=== PATIENT | female | born 2000 | race Two or more races ===

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

== ENCOUNTER 2021-05-24 09:06 | Emergency (ER) | payer OTHER ==
[~2021-05-24] VITALS: Ht 154.9 cm; Wt 90.9 kg
[~2021-05-24 09:06] MED LIST changes: +CEPH500T PO
[2021-05-24] MEDS ORDERED: ONDANSETRON PF 4 MG/2 ML VIAL. ONE (09:22)
[2021-05-24] MEDS ORDERED: ONDANSETRON PF 4 MG/2 ML VIAL. IVP ONE (09:30)
[2021-05-24] MEDS ORDERED: MORPHINE SULFATE 2 MG/ML INJ. IVP ONE (10:00)
[2021-05-24 10:22] LABS: BASO # 0.1 x10^3/uL (0.0-0.2); BASO % 0 % (0-3); EOS # 0.2 x10^3/uL (0.0-0.7); EOS % 1 % (0-3); HEMATOCRIT 37.7 % (36.0-47.0); HEMOGLOBIN 12.5 g/dL (12.0-15.5); LYMPH # 1.9 x10^3/uL (1.0-4.8); LYMPH % 11 % (24-48); MEAN CORPUSCULAR HEMOGLOBIN 28 pg (25-35); MEAN CORPUSCULAR HGB CONC 33 g/dL (31-37); MEAN CORPUSCULAR VOLUME 86 fL (79-100); MONO # 0.6 x10^3/uL (0.0-1.1); MONO % 3 % (0-9); NEUT # 15.2 x10^3/uL (1.8-7.7); NEUT % 85 % (31-73); PLATELET COUNT 340 x10^3/uL (140-400); RED CELL DISTRIBUTION WIDTH 15.9 % (11.5-14.5); WHITE BLOOD COUNT 17.9 x10^3/uL (4.0-11.0)
[2021-05-24 10:24] LABS: CALCIUM 8.6 mg/dL (8.5-10.1); CREATININE 0.8 mg/dL (0.6-1.0); GFR 92.4; POTASSIUM 3.4 mmol/L (3.5-5.1)
[2021-05-24 10:30] LABS: ALBUMIN 3.7 g/dL (3.4-5.0); TOTAL BILIRUBIN 0.2 mg/dL (0.2-1.0); TOTAL PROTEIN 7.3 g/dL (6.4-8.2)
[2021-05-24] MEDS ORDERED: PROCHLORPERAZINE 10 MG/2 ML VIAL. IV ONE (10:45)
--- NOTE | 2021-05-24 10:46 | PHYS DOC ---
Past Medical History Past Medical History: No Pertinent History, Alcoholism Additional Past Medical Histor: cyclic vomiting Past Surgical History: No Surgical History Smoking Status: Current Every Day Smoker Additional Information: smokes marijuana daily Alcohol Use: Occasionally Drug Use: None General Adult EDM: Chief Complaint: NAUSEA/VOMITING/DIARRHEA HPI: HPI: Patient is a 20 year old female who presents with epigastric pain. Patient states "it is my gallbladder." States she has had similar pain in the past and was told that it was gallstones. Pain started early this morning. Associated with nausea multiple episodes of vomiting. She had a normal bowel movement this morning. Denies fever/chills. Denies dysuria, urgency, frequency. States that she had 2 mikes hard lemonade's last night, and occasionally feels hung over after a similar amount of drinking, but this is different than her typical hangover. Pain is been constant since onset. . Review of Systems: Review of Systems: Constitutional: Denies fever or chills. [] Eyes: Denies change in visual acuity. [] HENT: Denies nasal congestion or sore throat. [] Respiratory: Denies cough or shortness of breath. [] Cardiovascular: Denies chest pain or edema. [] GI: Reports abdominal pain, nausea, vomiting. Denies bloody stools or diarrhea. [] : Denies dysuria. [] Musculoskeletal: Denies back pain or joint pain. [] Integument: Denies rash. [] Neurologic: Denies headache, focal weakness or sensory changes. [] Endocrine: Denies polyuria or polydipsia. [] Lymphatic: Denies swollen glands. [] Psychiatric: Denies depression or anxiety. [] Heart Score: C/O Chest Pain: No Risk Factors: Risk Factors: DM, Current or recent (<one month) smoker, HTN, HLP, family history of CAD, obesity. Risk Scores: Score 0 - 3: 2.5% MACE over next 6 weeks - Discharge Home Score 4 - 6: 20.3% MACE over next 6 weeks - Admit for Clinical Observation Score 7 - 10: 72.7% MACE over next 6 weeks - Early Invasive Strategies Current Medications: Current Medications Medications (Trade) Dose Ordered Sig/Jewell Start Time Stop Time Status Last Admin Dose Admin Morphine Sulfate (Morphine Sulfate) 2 mg 1X ONCE 05/24/21 10:00 05/24/21 10:03 DC 05/24/21 10:25 2 MG Ondansetron HCl (Zofran) 4 mg 1X ONCE 05/24/21 09:30 05/24/21 09:31 DC 05/24/21 09:25 4 MG Prochlorperazine Edisylate (Compazine) 10 mg 1X ONCE 05/24/21 10:45 05/24/21 10:46 Allergies: Allergies: Allergies Coded Allergies Type Severity Reaction Last Updated Verified No Known Drug Allergies 05/24/21 No Physical Exam: PE: Constitutional: Appears uncomfortable. Vomiting in room. [] HENT: Normocephalic, atraumatic, bilateral external ears normal, oropharynx moist, no oral exudates, nose normal. [] Eyes: PERRLA, EOMI, conjunctiva normal, no discharge. [] Neck: Normal range of motion, no tenderness, supple, no stridor. [] Cardiovascular:Heart rate regular rhythm, no murmur [] Lungs & Thorax: Bilateral breath sounds clear to auscultation [] Abdomen: Soft. Significant epigastric tenderness to palpation, mild right upper quadrant tenderness to palpation. No guarding or rebound. [] Skin: Warm, dry, no erythema, no rash. [] Back: No tenderness, no CVA tenderness. [] Extremities: No tenderness, no cyanosis, no clubbing, ROM intact, no edema. [] Neurologic: Alert and oriented X 3, normal motor function, normal sensory function, no focal deficits noted. [] Psychologic: Affect normal, judgement normal, mood normal. [] Current Patient Data: Labs: Laboratory Tests Test 05/24/21 09:30 White Blood Count 17.9 x10^3/uL (4.0-11.0) H Red Blood Count 4.40 x10^6/uL (3.50-5.40) Hemoglobin 12.5 g/dL (12.0-15.5) Hematocrit 37.7 % (36.0-47.0) Mean Corpuscular Volume 86 fL (79-100) Mean Corpuscular Hemoglobin 28 pg (25-35) Mean Corpuscular Hemoglobin Concent 33 g/dL (31-37) Red Cell Distribution Width 15.9 % (11.5-14.5) H Platelet Count 340 x10^3/uL (140-400) Neutrophils (%) (Auto) 85 % (31-73) H Lymphocytes (%) (Auto) 11 % (24-48) L Monocytes (%) (Auto) 3 % (0-9) Eosinophils (%) (Auto) 1 % (0-3) Basophils (%) (Auto) 0 % (0-3) Neutrophils # (Auto) 15.2 x10^3/uL (1.8-7.7) H Lymphocytes # (Auto) 1.9 x10^3/uL (1.0-4.8) Monocytes # (Auto) 0.6 x10^3/uL (0.0-1.1) Eosinophils # (Auto) 0.2 x10^3/uL (0.0-0.7) Basophils # (Auto) 0.1 x10^3/uL (0.0-0.2) Platelet Estimate Pending Sodium Level 143 mmol/L (136-145) Potassium Level 3.4 mmol/L (3.5-5.1) L Chloride Level 108 mmol/L (98-107) H Carbon Dioxide Level 22 mmol/L (21-32) Anion Gap 13 (6-14) Blood Urea Nitrogen 8 mg/dL (7-20) Creatinine 0.8 mg/dL (0.6-1.0) Estimated GFR (Cockcroft-Gault) 92.4 BUN/Creatinine Ratio 10 (6-20) Glucose Level 127 mg/dL (70-99) H Calcium Level 8.6 mg/dL (8.5-10.1) Total Bilirubin 0.2 mg/dL (0.2-1.0) Aspartate Amino Transferase (AST) 18 U/L (15-37) Alanine Aminotransferase (ALT) 27 U/L (14-59) Alkaline Phosphatase 81 U/L (46-116) Total Protein 7.3 g/dL (6.4-8.2) Albumin 3.7 g/dL (3.4-5.0) Albumin/Globulin Ratio 1.0 (1.0-1.7) Lipase 61 U/L (73-393) L Laboratory Tests 05/24/21 09:30 Laboratory Tests 05/24/21 09:30 Vital Signs: Vital Signs Date Time Temp Pulse Resp B/P (MAP) Pulse Ox O2 Delivery O2 Flow Rate FiO2 05/24/21 10:27 80 20 154/82 (106) 100 Room Air 05/24/21 09:09 98.3 98.3 EKG: EKG: [] Radiology/Procedures: Radiology/Procedures: [] Impression: [facility] [address] [place] [address] IMAGING REPORT Signed PATIENT: ELKIN AIKEN ACCOUNT: [id number] : 2000 LOCATION: ER AGE: 20 SEX: F EXAM STATUS: REG ER ORD. PHYSICIAN: GUANAKITO HERRMANN MD REASON: EPIGASTRIC, RUQ PAIN PROCEDURE: ABDOMEN COMPLETE INDICATION : Reason: EPIGASTRIC, RUQ PAIN / Spl. Instructions: / History: COMPARISON: January 2020 TECHNIQUE: Multiple ultrasound images obtained through the abdomen in grayscale and color. FINDINGS: Pancreas: Largely obscured by overlying structures. Liver: Echotexture within normal limits in visualized portions of liver. Gallbladder: Gallstone visualized. IVC: Partially distended at level of liver. Common Bile Duct: Not dilated. Right Kidney: No hydronephrosis. IMPRESSION: * 2 cm gallstone is seen without common bile duct dilation Electronically signed by: Francisco J Bah MD (05/24/2021 11:06 AM) [id number] DICTATED and SIGNED BY: FRANCISCO J BAH MD DATE: 05/24/21 [id number] 0 Course & Med Decision Making: Course & Med Decision Making Pertinent Labs and Imaging studies reviewed. (See chart for details) Patient 20-year-old female with reported history of gallstones who presents with epigastric pain starting abruptly this morning. Pain is been constant and unrelenting. Afebrile and hemodynamically stable on arrival. Appears acutely uncomfortable on examination. Has epigastric and right upper quadrant pain on examination. We will obtain laboratory work-up with CBC, CMP, lipase, and RUQ ultrasound for initial evaluation. DDx includes gastritis, pancreatitis, cholelithiasis, early cholecystitis, choledocholithiasis. 1046 White count 17.9. LFTs normal. Ultrasound shows a 2 cm gallstone without secondary findings of cholecystitis. Symptoms are now improved. Pain is now gone. Likely biliary colic. Discussed with Dr. Verde of surgery, who will see the patient outpatient in his office. Return precautions discussed. [id number] Adriana Disclaimer: Adriana Disclaimer: This electronic medical record was generated, in whole or in part, using a voice recognition dictation system. Departure Departure Impression: Primary Impression: Biliary colic Disposition: HOME / SELF CARE / HOMELESS Condition: STABLE Referrals: NO PCP (PCP) KAYLENE VERDE MD Call his office today to schedule a follow-up appointment to discuss having your gallbladder removed. Additional Instructions: You have a large gallstone, this is likely the cause of your pain. These can sometimes cause infections in your gallbladder. If you develop fever/chills, recurrent constant pain, or other new/concerning symptoms please return to the emergency department for reevaluation. Otherwise please call Dr. Verde's office to schedule an outpatient appointment. GUANAKITO HERRMANN MD May 24, 2021 10:46
[2021-05-24 11:05] LABS: % BANDS 1 % (0-9); % LYMPHS 11 % (24-48); % MONOS 4 % (0-10); % SEGS 84 % (35-66)
[2021-05-24 11:06] LABS: PLT ESTIMATE ADEQUATE (ADEQUATE)
--- NOTE | 2021-05-24 11:08 | RAD ---
INDICATION : Reason: EPIGASTRIC, RUQ PAIN / Spl. Instructions: / History: COMPARISON: January 2020 TECHNIQUE: Multiple ultrasound images obtained through the abdomen in grayscale and color. FINDINGS: Pancreas: Largely obscured by overlying structures. Liver: Echotexture within normal limits in visualized portions of liver. Gallbladder: Gallstone visualized. IVC: Partially distended at level of liver. Common Bile Duct: Not dilated. Right Kidney: No hydronephrosis. IMPRESSION: * 2 cm gallstone is seen without common bile duct dilation Electronically signed by: Luis Carlos Billy MD (05/24/2021 11:06 AM) [id number]
[2021-05-24 12:20] VITALS: BP 143/83
== END 2021-05-24 12:26 | disposition home or self-care (01) ==
LOC: ER 09:06
DX: K80.50 Calculus of bile duct without cholangitis or cholecystitis without obstruction (principal); F17.200 Nicotine dependence, unspecified, uncomplicated
CPT/HCPCS: 36415; 76700; 80053; 83690; 85007; 85025; 96374; 96375; 99285; J0780; J2270; J2405

== ENCOUNTER → 2021-06-24 | Outpatient (CLI) | payer OTHER | LOC: LAB 08:55 | PROVIDERS: ATTEND Surgery | DX: Z01.812 Encounter for preprocedural laboratory examination (principal); U07.1 COVID-19; K80.10 Calculus of gallbladder with chronic cholecystitis without obstruction | CPT/HCPCS: U0003; U0005 ==

== ENCOUNTER 2022-02-11 11:05 | Day surgery (SDC) | payer OTHER ==
[~2022-02-11] VITALS: Ht 154.9 cm; Wt 104.0 kg
[~2022-02-11 11:05] MED LIST changes: +HYDROmorphone 2 MG/ML INJ. IVP PRN; +IV RINGERS,LACTATED 1000ML 1,000 ML IV SCH; +LIDOCAINE 2% PF 5 ML VIAL. ONE; +MORPHINE SULFATE 2 MG/ML INJ. IVP PRN; +ONDANSETRON PF 4 MG/2 ML VIAL. ONE; +PROCHLORPERAZINE 10 MG/2 ML VIAL. IVP PRN; +PROPOFOL 10 MG/ML (20ML) VIAL. IV ONE; +ROCURONIUM 50 MG/5 ML VIAL. ONE; +fentaNYL PF VIAL 100 MCG/2 ML VIAL IVP PRN
[2022-02-11 11:40] VITALS: BP 127/74
[2022-02-11] MEDS ORDERED: MIDAZOLAM HCL/PF 2 MG/2 ML VIAL. ONE (11:41)
[2022-02-11] MEDS ORDERED: fentaNYL PF VIAL 100 MCG/2 ML VIAL ONE ×2 (11:42→13:21)
[2022-02-11] MEDS ORDERED: GLYCOPYRROLATE 1 MG/5 ML VIAL. ONE (11:42)
[2022-02-11] MEDS ORDERED: KETOROLAC 30 MG/ML VIAL. ONE (11:42)
[2022-02-11] MEDS ORDERED: SCOPOLAMINE 1.5MG PATCH. TD ONE (11:45)
[2022-02-11] MEDS ORDERED: ACETAMINOPHEN 500 MG TABLET PO ONE (12:00)
[2022-02-11] MEDS ORDERED: SURGICEL HEMOSTAT 4X8 EACH. ONE (12:03)
[2022-02-11] MEDS ORDERED: BUPIVACAINE-EPI 0.25%-1:200000 MPF 30 ML VIAL. ONE (12:03)
[2022-02-11] MEDS ORDERED: IOHEXOL 300 MG/ML 50 ML VIAL. ONE (12:03)
[2022-02-11] MEDS ORDERED: SUGAMMADEX SODIUM 200 MG/2 ML VIAL. IVP ONE (12:15)
[2022-02-11] MEDS ORDERED: BUPIVACAINE MPF 0.25% 30 ML VIAL. INJ ONE (12:40)
--- NOTE | 2022-02-11 13:07 | PDOC4 ---
Operative Note Operative Note Date: February 11, 2022 at 1:05 PM Preoperative diagnosis: Chronic cholecystitis cholelithiasis Postoperative diagnosis: Same Procedure: Laparoscopic cholecystectomy with fluorescein cholangiography Surgeon: Ammon Specimen: Gallbladder Dictation: Patient is a 21-year-old female with right upper quadrant abdominal pain and ultrasound showing gallstones. Procedure of laparoscopic cholecystectomy was explained to the patient detail was benefits were also discussed including bleeding infection injury to intra-abdominal contents possible necessitating further open operations alternatives to this procedure also discussed with the patient who seemed to understand and gave a verbal written consent to have the procedure performed. Patient was taken to the operating room placed in the supine position general anesthesia was initiated o nce patient was sleeping intubated her abdomen was prepped and draped usual sterile fashion using ChloraPrep. Area just below the umbilicus was injected with quarter percent Marcaine with epinephrine incision was made 11 blade scalpel and a varies needle was placed within the abdomen creating pneumoperitoneum once this was complete a 11 mm port was placed and a 5 mm camera was placed within the abdomen no other abnormalities were noted. 5 mm ports placed in the epigastrium a 5 mm port was placed in the right midabdomen and a 5 mm port was placed in the right lateral abdomen all under direct visualization. The dome of the gallbladder is grasped retracted cephalad the infundibulum the gallbladder is grasped tract laterally exposing the triangle adherent tissues the triangle were taken down with blunt dissection exposing the cystic duct and cystic artery. Fluorescein cholangiography was performed which showed good dye within the cystic duct transversing to the common bile duct with no evidence of obstruction. The cystic duct was then doubly clipped and transected the cystic artery was clipped and transected the gallbladder was taken off the liver with hook electrocautery placed in Endo Catch bag removed from the umbilicus right upper quadrant is irrigated and suctioned dry hemostasis need be appropriate the pneumoperitoneum was reduced all ports were removed the fascial defect at the umbilicus was closed with a [id number] 0 Vicryl suture and the skin was reapproximated all port sites for subcuticular Monocryl Mastisol Steri-Strips and island dressings were applied. Patient was awakened and extubated in the operating room taken recovery in stable condition all sponge instrument needle counts listed as correct estimated blood loss 10 mL KAYLENE TOBIN MD February 11, 2022 13:07
[2022-02-11] MEDS ORDERED: OXYC1TAB15 PO (13:10)
[2022-02-11] MEDS: fentaNYL PF VIAL 100 MCG/2 ML VIAL IVP PRN ×2 (13:26→13:39)
[2022-02-11] MEDS ORDERED: oxyCODONE/APAP 5/325 1 TAB TABLET PO ONE (13:45)
[2022-02-11 14:02] VITALS: BP 128/70
--- NOTE | 2022-02-13 17:10 | PATHOLOGY ---
[facility] Accession Number: [id number] . 01 Material submitted: . gallbladder - GALLBLADDER . 01 Clinical history: . CHRONIC CHOLECYSTITIS . 02 Diagnosis: Gallbladder, laparoscopic cholecystectomy: - Cholelithiasis. - Cholesterolosis. - Chronic cholecystitis. (M:pebbles; 02/13/2022 S 02/13/2022 1345 Local . 02 Comment: There is no evidence of malignancy. (JPM:pebbles; 02/13/2022) . 02 Electronically signed: . Lyle Hanna MD, Pathologist NPI- [id number] . 01 Gross description: . Fixative: Formalin Labeled: Gallbladder Specimen received: Intact gallbladder Dimensions: 10.2 x 2.4 x 2.4 cm Serosa: Pale valencia-chowdhury to dark green and adipose covered, with dark valencia-yellow, shaggy and cauterized adventitia Lymph node: None identified Mucosa: Velvety and bile-stained with yellow stippling Average wall thickness: 0.4 cm Calculi: Single dark valencia-yellow and granular calculus measuring 1.9 x 1.5 x 1.5 cm. Abnormalities: None identified . A1- [employer] body, fundus, and the cystic duct margin. ([facility]; 02/12/2022) [facility] 02/12/2022 1026 Local . 02 Pathologist provided ICD-10: K80.10 . 02 CPT . 513814 Specimen Comment: A courtesy copy of this report has been sent to [phone] Specimen Comment: Report sent to Performed at: [address], [place], [place] [id number] MD Jonah Seay MD Phone: [phone] Performed at: 02 [facility] [address] [place], [place] [id number] MD Lyle Hanna MD Phone: [phone]
== END 2022-02-11 15:01 | disposition home or self-care (01) ==
LOC: SURG 11:05
PROVIDERS: ATTEND Surgery
DX: K80.10 Calculus of gallbladder with chronic cholecystitis without obstruction (principal); F17.210 Nicotine dependence, cigarettes, uncomplicated; Z79.899 Other long term (current) drug therapy; Z98.890 Other specified postprocedural states; Z72.89 Other problems related to lifestyle
CPT/HCPCS: 47563; 81025; A4364; A4930; A6257; J0690; J1885; J2250; J2405; J2704; J3010; J3490; 88304; A4657; Q9967